=== PATIENT | male | born 1940 | race Caucasian/White ===

== ENCOUNTER → 2016-06-13 | Outpatient (CLI) | payer OTHER ==
[~2016-06-13] MED LIST: ALFUZOSIN HCL10 MG PO; ALPRAZOLAM0.25 M2 PO; ASPIRIN EC325 MG PO; ASPIRIN81 M2 PO; ATORVASTATIN CA10 MG PO; CELECOXIB200 MG PO; ENDOCET 5-3251 EACH PO; FERROUS SULFAT325 MG PO; FINASTERIDE5 MG PO; HALCION0.25 MG PO; HYDROCODON-ACE1 EAC7 PO; NORVASC5 MG PO; OXYCONTIN10 MG PO; POTASSIUM-9999 MG PO; PREDNISONE10 MG PO; PREDNISONE20 MG PO; PREVACID30 MG PO; QUININE SULFAT324 MG PO; SINGULAIR10 MG PO; SPIRIVA1 INHALATI IH; ULTRAM50 MG PO; VENTOLIN HFA18 GM IH; XARELTO15 MG PO
== END | disposition home or self-care (01) ==
LOC: NUC 07:34
DX: M25.461 Effusion, right knee (principal); Z96.651 Presence of right artificial knee joint; M19.021 Primary osteoarthritis, right elbow; M19.022 Primary osteoarthritis, left elbow; M19.041 Primary osteoarthritis, right hand; M19.042 Primary osteoarthritis, left hand; M19.071 Primary osteoarthritis, right ankle and foot; M19.072 Primary osteoarthritis, left ankle and foot
CPT/HCPCS: 78315; A9503